=== PATIENT | male | born 1955 | race Caucasian/White ===

== ENCOUNTER 2020-05-14 08:21 | Day surgery (SDC) | payer BC ==
[2020-05-08 13:56] LABS: BASOPHILS % (AUTO) 0.2 % (0-1); EOSINOPHILS % (AUTO) 0.7 % (0-6); LYMPHOCYTES # (AUTO) 1.4 X10'3 (1.1-4.8); LYMPHOCYTES % (AUTO) 22.5 % (21-51); MEAN CORPUSCULAR HEMOGLOBIN 29.1 PG (27.0-31.0); MEAN CORPUSCULAR HGB CONC 34.1 g/dL (33.0-36.5); MEAN CORPUSCULAR VOLUME 85.4 FL (78-98); MEAN PLATELET VOLUME 8.9 FL (7.4-10.4); MONOCYTES # (AUTO) 0.5 X10'3 (0-0.9); MONOCYTES % (AUTO) 8.4 % (2-12); NEUTROPHILS # (AUTO) 4.1 X10'3 (1.8-7.7); NEUTROPHILS % (AUTO) 68.2 % (42-75); PRE OP HEMATOCRIT 48.9 % (42.0-52.0); PRE OP HEMOGLOBIN 16.6 g/dL (14.0-17.9); PRE OP PLATELET COUNT 262 X10'3 (140-440); RED BLOOD COUNT 5.72 X10'6 (4.70-6.10); RED CELL DISTRIBUTION WIDTH 13.6 % (11.5-14.5)
[2020-05-08 13:58] LABS: CLARITY,URINE CLOUDY (Clear); COLOR,URINE YELLOW (Yellow); GLUCOSE, URINE >=1000 mg/dl (Neg); KETONES,URINE TRACE mg/dl (Neg); LEUKOCYTE ESTERASE ,URINE NEGATIVE (Neg); NITRITES, URINE POSITIVE (Neg); OCCULT BLOOD,URINE TRACE-INTACT (Neg); PROTEIN,URINE NEGATIVE (Neg)
[2020-05-08 14:02] LABS: UA COLLECTION TYPE CLN CATCH MIDSTREAM
[2020-05-08 14:06] LABS: RBC,URINE 0-2 /HPF (0-2); WBC,URINE 50-100 /HPF (0-4)
[2020-05-08 14:07] LABS: BACTERIA,URINE 2+ /HPF (Neg); MUCUS STRANDS NONE SEEN /LPF (Neg); SQUAMOUS EPITHELIAL CELL,UR FEW /LPF (FEW); WBC CLUMPS,URINE FEW /HPF (NEGATIVE)
[2020-05-08 14:15] LABS: ALBUMIN/GLOBULIN RATIO 1.1 (1.1-1.5); ALKALINE PHOSPHATASE 133 IU/L (46-116); BLOOD UREA NITROGEN 13 MG/DL (7-18); CALCIUM 9.4 MG/DL (8.5-10.1); CHLORIDE 102 MMOL/L (99-107); CREATININE 1.18 MG/DL (0.60-1.10); PRE OP ALT 25 U/L (30-65); PRE OP ANION GAP 9 (8-16); PRE OP AST 14 U/L (10-37); PRE OP BILIRUB, TOTAL 0.5 MG/DL (0.0-1.0); PRE OP POTASSIUM 3.8 MMOL/L (3.4-5.1); PRE OP SODIUM 138 MMOL/L (135-145); TOTAL CARBON DIOXIDE 27.5 MMOL/L (24-32); TOTAL PROTEIN 7.8 G/DL (6.4-8.2); eGFR 62 ML/MIN
[2020-05-08 14:17] LABS: PRE OP GLUCOSE 409 MG/DL (70-104)
[2020-05-14] VITALS (19 sets, daily range): BP systolic 111–152; BP diastolic 61–89
[~2020-05-14] VITALS: Ht 177.8 cm; Wt 83.0 kg
[~2020-05-14 08:21] MED LIST: METF500T PO; famotidine 20mg tablet PO ONE; ringers solution, lacted 1,000 ML IV SCH
[2020-05-14] MEDS ORDERED: ceFAZolin 2gm in dextrose, iso 50 ML IV ONE (09:30)
[2020-05-14] MEDS ORDERED: insulin regular, human 10 units/0.1 ml syringe IV ONE (10:10)
[2020-05-14] MEDS ORDERED: insulin regular, human U-100 3ml vial - multi-dose IV ONE ×4 (10:25→17:20)
[2020-05-14] MEDS ORDERED: BUPIVAcaine/PF 2.5mg/ml (0.25%) 10ml vial ONE (12:40)
[2020-05-14] MEDS ORDERED: sevoflurane 250ml liquid IH ONE (13:37)
[2020-05-14] MEDS ORDERED: fentaNYL/PF 50MCG/1 ML 2ML syringe ONE (13:37)
[2020-05-14] MEDS ORDERED: meperidine/PF 25mg/ml syringe ONE (13:37)
[2020-05-14] MEDS ORDERED: midazolam 2 mg/2 ml injection ONE (13:37)
[2020-05-14] MEDS ORDERED: LIDOcaine 1%/PF 5ML 10 MG/ML VIAL ONE (13:37)
[2020-05-14] MEDS ORDERED: propofol 10mg/ml 20ml vial IV ONE (13:37)
[2020-05-14] MEDS ORDERED: rocuronium 10mg/ml inj IV ONE (13:37)
[2020-05-14] MEDS ORDERED: dexamethasone sod phosphate 10mg/ml inj ONE (13:37)
[2020-05-14] MEDS ORDERED: glycopyrrolate 0.2mg/ml inj ONE (13:37)
[2020-05-14] MEDS ORDERED: neostigmine methylsulfate 1 MG/ML 10ml vial ONE ×2 (13:37)
[2020-05-14] MEDS ORDERED: ondansetron/PF 4mg/2ml inj ONE (13:37)
--- NOTE | 2020-05-14 15:03 | NUR ---
Received from OR via [facility] , accompanied by Anesthesiologist LIN and report given by Anesthesiolgist. 2 ABDOMINAL BANDAIDS PRESENT. NO DRAINAGE 10L MASK ON . VSS. BG TAKEN 220 ACCUCHECK. AWARE AND MEDS ORDERED. Addendum: 05/14/20 at 1526 by Kadeem Miguel RN, RN Amended: Links added.
[2020-05-14] MEDS ORDERED: proCHLORperazine 10 MG/2 ml inj IV PRN (15:10)
[2020-05-14] MEDS ORDERED: ondansetron/PF 4mg/2ml inj IV PRN (15:10)
[2020-05-14] MEDS ORDERED: morphine 4 MG/ML inj SYRINge IV PRN (15:10)
[2020-05-14] MEDS ORDERED: morphine 2 MG/ML inj. syringe IV PRN (15:10)
[2020-05-14] MEDS ORDERED: ringers solution, lacted 1,000 ML IV SCH (15:10)
[2020-05-14] MEDS ORDERED: meperidine/PF 25mg/ml syringe IV PRN ×3 (15:10)
--- NOTE | 2020-05-14 15:21 | NUR ---
MD CEBALLOS NOTIFIED AND MEDS ORDERED. Addendum: 05/14/20 at 1522 by Kadeem Miguel RN, RN Amended: Links added.
[2020-05-14] MEDS ORDERED: acetaminophen 1,000mg/100ml IV 100 ML IV ONE (16:10)
--- NOTE | 2020-05-14 20:17 | NUR ---
I HAVE REVIEWED D/C INSTRUCTIONS WITH PATIENT AND FAMILY AND THEY HAVE VERBALIZED UNDERSTANDING. PATIENT D/C HOME WITH ALL BELONGINGS AND FAMILY GAVE TRANSPORT HOME. VOIDED LARGE AMOUNT OF URINE, VSS, DENIES PAIN, AMBULATED OVER 800' DURING HIS STAY HERE. ALL QUESTIONS ANSWERED. Addendum: 05/14/20 at 2018 by Kadeem Miguel RN, RN Amended: Links added.
== END 2020-05-14 20:13 | disposition home or self-care (01) ==
LOC: PAS 08:21
PROVIDERS: ATTEND Surgery
DX: K40.90 Unilateral inguinal hernia, without obstruction or gangrene, not specified as recurrent (principal); E11.9 Type 2 diabetes mellitus without complications; M17.10 Unilateral primary osteoarthritis, unspecified knee; Z11.59 Encounter for screening for other viral diseases; Z98.890 Other specified postprocedural states; Z79.899 Other long term (current) drug therapy; Z82.3 Family history of stroke; Z80.0 Family history of malignant neoplasm of digestive organs
CPT/HCPCS: 36415; 49650; 71046; 80053; 81001; 82948; 83036; 85025; 87077; 87088; 87186; 93005; C1727; C1781; J0131; J1100; J2175; J2250; J2270; J2405; J2704; J2710; J3010; J3490; U0003; A4215; A4314; A4618; A6258; J1815; J7120

== ENCOUNTER 2020-08-06 08:05 | Day surgery (SDC) | payer BC ==
[~2020-08-06] VITALS: Ht 172.7 cm; Wt 81.8 kg
[~2020-08-06 08:05] MED LIST changes: -famotidine 20mg tablet PO ONE; -ringers solution, lacted 1,000 ML IV SCH
[2020-08-06 08:20] VITALS: BP 124/80
[2020-08-06] MEDS ORDERED: fentaNYL/PF 50MCG/1 ML 2ML syringe ONE (09:05)
[2020-08-06] MEDS ORDERED: MIDAZolam 5mg/5ml vial ONE (09:05)
[2020-08-06 09:33] VITALS: BP 124/109
== END 2020-08-06 09:55 | disposition home or self-care (01) ==
LOC: GI LAB 08:05
PROVIDERS: ATTEND Internal Medicine Gastroenterology
DX: Z12.11 Encounter for screening for malignant neoplasm of colon (principal); D12.0 Benign neoplasm of cecum; K62.1 Rectal polyp; D12.5 Benign neoplasm of sigmoid colon; D12.4 Benign neoplasm of descending colon; K57.30 Diverticulosis of large intestine without perforation or abscess without bleeding
CPT/HCPCS: 45380; 45385; 99152; 99153; C1773; J2250; J3010; J7040; A4620

== ENCOUNTER 2020-10-15 05:18 | Inpatient (IN) | payer BC ==
[2020-10-08 11:06] LABS: BASOPHILS % (AUTO) 0.2 % (0-1); EOSINOPHILS # (AUTO) 0.1 X10'3 (0-0.9); EOSINOPHILS % (AUTO) 2.4 % (0-6); LYMPHOCYTES # (AUTO) 1.4 X10'3 (1.1-4.8); LYMPHOCYTES % (AUTO) 26.7 % (21-51); MEAN CORPUSCULAR HEMOGLOBIN 28.7 PG (27.0-31.0); MEAN CORPUSCULAR HGB CONC 34.2 g/dL (33.0-36.5); MEAN CORPUSCULAR VOLUME 83.7 FL (78-98); MEAN PLATELET VOLUME 8.4 FL (7.4-10.4); MONOCYTES # (AUTO) 0.5 X10'3 (0-0.9); MONOCYTES % (AUTO) 10.2 % (2-12); NEUTROPHILS # (AUTO) 3.2 X10'3 (1.8-7.7); NEUTROPHILS % (AUTO) 60.5 % (42-75); PRE OP HEMATOCRIT 49.2 % (42.0-52.0); PRE OP HEMOGLOBIN 16.8 g/dL (14.0-17.9); PRE OP PLATELET COUNT 255 X10'3 (140-440); RED BLOOD COUNT 5.87 X10'6 (4.70-6.10); RED CELL DISTRIBUTION WIDTH 13.8 % (11.5-14.5)
[2020-10-08 11:07] LABS: CLARITY,URINE CLEAR (Clear); COLOR,URINE STRAW (Yellow); GLUCOSE, URINE NEGATIVE (Neg); KETONES,URINE NEGATIVE (Neg); LEUKOCYTE ESTERASE ,URINE NEGATIVE (Neg); NITRITES, URINE NEGATIVE (Neg); OCCULT BLOOD,URINE NEGATIVE (Neg); PROTEIN,URINE NEGATIVE (Neg); UROBILINOGEN,URINE 0.2 E.U/dL (0.2-1.0)
[2020-10-08 11:19] LABS: ALBUMIN 4.6 G/DL (3.4-5.0); ALBUMIN/GLOBULIN RATIO 1.2 (1.1-1.5); ALKALINE PHOSPHATASE 97 IU/L (46-116); BLOOD UREA NITROGEN 12 MG/DL (7-18); BUN/CREATININE RATIO 12.8 (5.4-32.0); CALCIUM 9.5 MG/DL (8.5-10.1); CHLORIDE 103 MMOL/L (99-107); CREATININE 0.94 MG/DL (0.60-1.10); PRE OP ALT 24 U/L (30-65); PRE OP ANION GAP 9 (8-16); PRE OP AST 11 U/L (10-37); PRE OP BILIRUB, TOTAL 0.8 MG/DL (0.0-1.0); PRE OP GLUCOSE 124 MG/DL (70-104); PRE OP SODIUM 139 MMOL/L (135-145); TOTAL CARBON DIOXIDE 26.7 MMOL/L (24-32); TOTAL PROTEIN 8.4 G/DL (6.4-8.2); eGFR 80 ML/MIN
[2020-10-08 11:32] LABS: UA COLLECTION TYPE VOIDED
[~2020-10-15] VITALS: Ht 175.3 cm; Wt 81.1 kg
[2020-10-15] VITALS (28 sets, daily range): BP systolic 141–167; BP diastolic 63–88
[2020-10-15] MEDS ORDERED: famotidine 20mg tablet PO ONE (05:30)
[2020-10-15] MEDS ORDERED: ceFOXitin 2GM-NS 100mL ADDvant 100 ML IV ONE (05:30)
[2020-10-15] MEDS ORDERED: LIDOcaine 1% (10mg/ml) 2ml vial ONE (06:19)
[2020-10-15] MEDS: ringers solution, lacted 1,000 ML IV SCH ×2 (06:24→14:42)
[2020-10-15] MEDS ORDERED: BUPIVAcaine/PF 2.5 mg/ml (0.25%) 30ml vial ONE (06:47)
[2020-10-15] MEDS ORDERED: morphine 2 MG/ML inj. syringe IV PRN (08:20)
[2020-10-15] MEDS ORDERED: proCHLORperazine 10 MG/2 ml inj IV PRN (08:20)
[2020-10-15] MEDS ORDERED: ringers solution, lacted 1,000 ML IV SCH (08:20)
[2020-10-15] MEDS ORDERED: meperidine/PF 25mg/ml syringe IV PRN ×3 (08:20)
[2020-10-15] MEDS ORDERED: ondansetron/PF 4mg/2ml inj IV PRN (08:20)
[2020-10-15] MEDS ORDERED: fentaNYL/PF 50MCG/1 ML 2ML syringe ONE ×2 (08:31→08:54)
[2020-10-15] MEDS ORDERED: propofol inj 20 ML IV ONE (08:34)
[2020-10-15] MEDS ORDERED: LIDOcaine 2% (20mg/ml) 5ml vial ONE (08:34)
[2020-10-15] MEDS ORDERED: rocuronium 10mg/ml inj IV ONE ×2 (08:34→08:40)
[2020-10-15] MEDS ORDERED: neostigmine methylsulfate 1 MG/ML 10ml vial ONE ×2 (08:40→10:08)
[2020-10-15] MEDS ORDERED: sevoflurane 250ml liquid IH ONE (08:40)
[2020-10-15] MEDS ORDERED: ondansetron/PF 4mg/2ml inj ONE ×2 (08:59→10:08)
[2020-10-15] MEDS ORDERED: acetaminophen 1,000mg/100ml IV 100 ML IV ONE (10:08)
[2020-10-15] MEDS ORDERED: glycopyrrolate 0.2mg/ml inj ONE (10:08)
[2020-10-15] MEDS ORDERED: phenylephrine 10mg/ml inj. ONE (10:10)
[2020-10-15] MEDS ORDERED: bacitracin 15gm ointment TP ONE (10:15)
[2020-10-15] MEDS ORDERED: meperidine/PF 25mg/ml syringe ONE (10:18)
--- NOTE | 2020-10-15 10:27 | NUR ---
Received from OR via hospital BED , accompanied by Anesthesiologist DR COREA and report given by Anesthesiolgist, PATIENT WAKING UP, severe pain, patient medicated with demerol and morphine, V/S WNL, CSM INTACT, ABDOMEN DRESSING with small amount of drainage, reported to Dr. Corea. SCD ON, 20G PIV TO Right wrist, F/C DRAINING CLEAR YELLOW URINE. Addendum: 10/15/20 at 1049 by Marion Millan RN Amended: Links added.
[2020-10-15] MEDS: morphine 4 MG/ML inj SYRINge IV PRN ×4 (10:40→11:02)
[2020-10-15] MEDS ORDERED: dextrose ORAL solution 15 GM/59 ML bottle PO PRN ×2 (12:25)
[2020-10-15] MEDS ORDERED: MESSAGE TO PHARMACY PO ONE (12:25)
[2020-10-15] MEDS ORDERED: dextrose 50%-water 50ml dispensing syringe IV PRN ×2 (12:25)
[2020-10-15] MEDS ORDERED: glucagon, human recombinant 1mg kit SUBCUT PRN (12:25)
[2020-10-15] MEDS ORDERED: CADD PCA waste documentation MC PRN (12:35)
[2020-10-15] MEDS ORDERED: naloxone 0.4 mg/ml inj IV PRN (12:35)
--- NOTE | 2020-10-15 13:20 | NUR ---
Report called to Isaiah SO. Patient is slow to wake, however has pain controlled better. On 3L NC. Patient taking oral liquids. VSS on 3L NC. Pain controlled better. Urine catheter has clear yellow drainage. Dressing has some drainage, marked and relayed to Dr. Cool. Patient taken to 346B.
--- NOTE | 2020-10-15 13:48 | NUR ---
Received patient to room 346B via bed accompanied by x2 OR transfer techs. Patient drowsy but easily wakes to voice and follows commands. Patient reports comfortable at this time. Bag of belongings placed in chair next to bed. x2 bandaids cdi and one island dressing with drainage outlined. Millan catheter draining to gravity with clear, yellow urine. Oriented to room and call light. Call lightplaced within reach. Bed is low and locked.
[2020-10-15] MEDS: HYDROmorphone/NS 1 mg/ml CADD 50 ML IV SCH ×6 (14:11→23:00)
[2020-10-15] MEDS: piperacillin/tazo 3.375gm/50ml 50 ML IV SCH (16:55)
[2020-10-15] MEDS ORDERED: metFORMIN 500mg tablet PO SCH (17:00)
--- NOTE | 2020-10-15 18:19 | NUR ---
Problems reprioritized. Patient report given, questions answered & plan of care reviewed with JUDAH Cee.
[2020-10-15] MEDS: ondansetron/PF 4mg/2ml inj IV PRN (20:38)
[2020-10-15] MEDS: insulin Lispro (HumaLOG) vial - multi-dose SQ SCH (22:13)
[2020-10-15] MEDS: insulin glargine (Lantus) pen - multi-dose SQ SCH (22:13)
[2020-10-16] VITALS: BP 146/83
[2020-10-16] MEDS: piperacillin/tazo 3.375gm/50ml 50 ML IV SCH ×4 (00:11→23:43)
[2020-10-16] MEDS: ondansetron/PF 4mg/2ml inj IV PRN (00:30)
[2020-10-16] MEDS: HYDROmorphone/NS 1 mg/ml CADD 50 ML IV SCH ×12 (01:00→23:00)
[2020-10-16 04:00] VITALS: BP 128/65
--- NOTE | 2020-10-16 05:50 | NUR ---
Removed FC this morning @0550. Patient tolerated well.
--- NOTE | 2020-10-16 06:30 | NUR ---
Problems reprioritized. Patient report given, questions answered & plan of care reviewed with Daniel RN.
--- NOTE | 2020-10-16 06:30 | NUR ---
Patient in room [facility]. I have received report from Jaye SO and had the opportunity to ask questions and assume patient care.
[2020-10-16 07:29] VITALS: BP 128/71
[2020-10-16] MEDS: insulin Lispro (HumaLOG) vial - multi-dose SQ SCH ×3 (10:02→19:39)
[2020-10-16 11:00] VITALS: BP 115/68
[2020-10-16 19:00] VITALS: BP 137/75
[2020-10-16] MEDS: lactobacillus rhamnosus 10,000 MMU CELLS/CAPSULE PO SCH (19:36)
[2020-10-16] MEDS: insulin glargine (Lantus) pen - multi-dose SQ SCH (21:31)
[2020-10-17] VITALS: BP 138/71
[2020-10-17] MEDS: HYDROmorphone/NS 1 mg/ml CADD 50 ML IV SCH ×8 (01:00→15:00)
[2020-10-17 05:50] LABS: BASOPHILS % (AUTO) 0.1 % (0-1); EOSINOPHILS % (AUTO) 0.5 % (0-6); HEMATOCRIT 39.8 % (42.0-52.0); HEMOGLOBIN 13.7 g/dl (14.0-17.9); LYMPHOCYTES % (AUTO) 10.7 % (21-51); MEAN CORPUSCULAR HEMOGLOBIN 28.9 PG (27.0-31.0); MEAN CORPUSCULAR HGB CONC 34.4 g/dL (33.0-36.5); MEAN PLATELET VOLUME 7.9 FL (7.4-10.4); MONOCYTES # (AUTO) 0.9 X10'3 (0-0.9); MONOCYTES % (AUTO) 9.1 % (2-12); NEUTROPHILS # (AUTO) 7.5 X10'3 (1.8-7.7); NEUTROPHILS % (AUTO) 79.6 % (42-75); PLATELET COUNT 210 X10'3 (140-440); RED BLOOD COUNT 4.74 X10'6 (4.70-6.10); WHITE BLOOD COUNT 9.5 X10'3 (4.5-11.0)
[2020-10-17 07:00] VITALS: BP 121/73
--- NOTE | 2020-10-17 07:10 | NUR ---
Patient in room [facility]. I have received report from linda SO and had the opportunity to ask questions and assume patient care.
[2020-10-17] MEDS: lactobacillus rhamnosus 10,000 MMU CELLS/CAPSULE PO SCH ×2 (08:07→20:27)
[2020-10-17] MEDS: piperacillin/tazo 3.375gm/50ml 50 ML IV SCH ×2 (08:08→15:37)
[2020-10-17] MEDS: enoxaparin 40mg/0.4ml syringe SUBCUT SCH (08:08)
[2020-10-17] MEDS: insulin Lispro (HumaLOG) vial - multi-dose SQ SCH ×3 (09:47→20:30)
[2020-10-17 11:00] VITALS: BP 120/77
--- NOTE | 2020-10-17 15:53 | NUR ---
patient seen by Dr Handy amaya. DC dressing changed to abdomen. minimal serosang drainage observed. no c/o pain. not passed gas yet continues to ambulate and have clear lqd diet. will continue to monitor.
[2020-10-17 18:15] VITALS: BP 125/74
--- NOTE | 2020-10-17 19:01 | NUR ---
Problems reprioritized. Patient report given, questions answered & plan of care reviewed with amparo SO.
--- NOTE | 2020-10-17 19:13 | NUR ---
Patient in room [facility]. I have received report from JUDAH Myers and had the opportunity to ask questions and assume patient care.
[2020-10-17] MEDS: insulin glargine (Lantus) pen - multi-dose SQ SCH (22:34)
[2020-10-18 00:15] VITALS: BP 133/79
[2020-10-18] MEDS: piperacillin/tazo 3.375gm/50ml 50 ML IV SCH ×2 (00:20→07:56)
--- NOTE | 2020-10-18 06:09 | NUR ---
Problems reprioritized. Patient report given, questions answered & plan of care reviewed with JUDAH Myers.
--- NOTE | 2020-10-18 06:30 | NUR ---
Patient in room [facility]. I have received report from Clarissa SO and had the opportunity to ask questions and assume patient care.
[2020-10-18 07:50] VITALS: BP 140/83
[2020-10-18] MEDS: lactobacillus rhamnosus 10,000 MMU CELLS/CAPSULE PO SCH (07:57)
[2020-10-18] MEDS: enoxaparin 40mg/0.4ml syringe SUBCUT SCH (07:57)
[2020-10-18] MEDS: insulin Lispro (HumaLOG) vial - multi-dose SQ SCH ×2 (08:54→13:32)
[2020-10-18 11:00] VITALS: BP 142/78
--- NOTE | 2020-10-18 17:16 | NUR ---
patient tolerated full lqd and regular diet . BM x3. seen by DR Murrell is for DC. All DC instructions given to patient.. patient also given supplies for wound change. midline incision changed. minimal drainage observed. Patient DC home in stable condition with in private car to home
== END 2020-10-18 17:36 | disposition home or self-care (01) | DRG 331 ==
LOC: UNDOADMIN 05:18 → PAS IN 05:18 → EDSTATUS 08:30 → PAS IN 12:23 → SUR 3N 13:34 → PAS IN 13:34
PROVIDERS: ADMIT Surgery; ATTEND Surgery
PROC: 0DTK4ZZ Resection of Ascending Colon, Percutaneous Endoscopic Approach (ICD-10-PCS; principal; 2020-10-15 08:40)
DX: D49.0 Neoplasm of unspecified behavior of digestive system (principal); E11.9 Type 2 diabetes mellitus without complications; Z80.0 Family history of malignant neoplasm of digestive organs; Z82.3 Family history of stroke
CPT/HCPCS: Z7506; Z7508; 36415; 80053; 81003; 82948; 83036; 85025; 87081; 87635; A4618; A7000; C1758; G0378; J0131; J0694; J1170; J1650; J1815; J2001; J2175; J2270; J2370; J2405; J2543; J2704; J2710; J3010; J3490; J7120